=== PATIENT | male | born 1950 | race Caucasian/White ===

== ENCOUNTER 2016-11-16 06:51 | Emergency (ER) | payer MEDICARE, OTHER ==
[~2016-11-16] VITALS: Ht 162.6 cm; Wt 74.0 kg
[~2016-11-16 06:51] MED LIST: CYCL-319 PO; OXYC-279 PO
[2016-11-16 06:53] VITALS: Ht 162.6 cm; Wt 74.0 kg
[2016-11-16] MEDS ORDERED: HYDROCODONE/APAP (5/325) TAB PO ONE (07:30)
[2016-11-16] MEDS ORDERED: DIPHTH/TET/ACEL PERTUSS (ADULT) 0.5 ML VIAL IM* ONE (07:30)
[2016-11-16] MEDS ORDERED: SILVER SULFADIAZINE 1% 25 GM CR TOP ONE (07:30)
[2016-11-16] MEDS ORDERED: morphine 10 MG INJ IM ONE (07:30)
[2016-11-16] MEDS ORDERED: HYDR-906 PO (07:33)
[2016-11-16] MEDS ORDERED: IBUP-1542 PO (07:34)
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
== END 2016-11-16 08:05 | disposition home or self-care (01) ==
LOC: FTE 06:51
DX: T25.211A Burn of second degree of right ankle, initial encounter (principal); X10.0XXA Contact with hot drinks, initial encounter; Y92.9 Unspecified place or not applicable; Z23 Encounter for immunization
CPT/HCPCS: 90471; 90715; 96372; 99284; J2270; L3260

== ENCOUNTER 2018-03-02 17:45 | Emergency (ER) | END 2018-03-02 19:43 | disposition home or self-care (01) ==